=== PATIENT | female | born 1935 | race Caucasian/White ===

== ENCOUNTER 2016-08-01 09:00 | Outpatient (CLI) | payer OTHER ==
--- NOTE | 2016-08-01 11:28 | DIAGNOSTIC IMAGING REPORT ---
PROCEDURE: US VENOUS - BILATERAL EXT INDICATION: CHRONIC LE EDEMA,BILAT TECHNIQUE: Duplex sonography of the deep and superficial venous system in both lower extremities was performed. Compression and augmentation techniques were used. The patient was scanned in the upright position. Surveillance of the venous system during Valsalva maneuver when appropriate was performed. COMPARISON: None. FINDINGS: Each interrogated segment of the deep vein demonstrates normal compressibility, augmentation, and normal color Doppler flow without filling defect. No thrombus in either greater saphenous or short saphenous vein. There is no venous reflux in the right greater or lesser saphenous vein. The vein measures 7 mm in maximal diameter in the proximal segment. There is no venous reflux in the left greater or lesser saphenous vein. The vein measures 5 mm in maximal diameter in the proximal and distal segment. There is venous reflux in the left deep venous system. Reflux is noted in the popliteal vein for a duration of about 2.5 seconds. No reflux in the right deep venous system. No venous varicosities are seen. IMPRESSION: 1. Reflux in the left popliteal vein. 2. No evidence of superficial venous system reflux. 3. No deep venous thrombosis.
--- NOTE | 2016-08-01 12:24 | DIAGNOSTIC IMAGING REPORT ---
PROCEDURE: US ART LOWER EXT WITH DAO-B/L INDICATION: CHRONIC LE EDEMA,BILAT TECHNIQUE: Color Doppler duplex imaging of the lower extremity arterial system was performed bilaterally. Pre exercise ABIs were acquired. The patient was unable to exercise. COMPARISON: None. FINDINGS: RIGHT LOWER EXTREMITY: ABIs: Pre exercise posterior tibial: 0.74. Pre exercise dorsalis pedis: 0.67. VESSELS/ WAVEFORMS: Monophasic arterial inflow and monophasic arterial flow throughout the right lower extremity. Heavy calcification, particularly at the origin of the of the superficial femoral artery where the subjective moderate luminal stenosis is visible. There is also mild luminal stenosis at the origin of the profunda femoral artery. RIGHT LOWER EXTREMITY PEAK SYSTOLIC VELOCITIES: External iliac: 151 cm/second. Common femoral artery: 129 cm/second. Profunda femoral artery: 117 cm/second. Proximal superficial femoral artery: 253 cm/second. Mid superficial femoral artery: 130 cm/second. Distal superficial femoral artery: 120 cm/second. Popliteal artery: 60 cm/second. Proximal posterior tibial artery: 55 cm/second. Proximal anterior tibial artery: 64 cm/second. Peroneal artery: Not seen cm/second. Distal posterior tibial artery: 65 cm/second. Dorsalis pedis artery: 91 cm/second. LEFT LOWER EXTREMITY: ABIs: Pre exercise posterior tibial: 0.96. Pre exercise dorsalis pedis: 0.91. VESSELS/ WAVEFORMS: Monophasic arterial inflow and monophasic arterial flow throughout the lower extremity. Heavily calcified proximal arteries without a focal subjective luminal stenosis, but moderate irregularity in the common and superficial femoral arteries. LEFT LOWER EXTREMITY PEAK SYSTOLIC VELOCITIES: External iliac: 293 cm/second. Common femoral artery: 229 cm/second. Profunda femoral artery: 179 cm/second. Proximal superficial femoral artery: 179 cm/second. Mid superficial femoral artery: 148 cm/second. Distal superficial femoral artery: 157 cm/second. Popliteal artery: 106 cm/second. Proximal posterior tibial artery: 66 cm/second. Proximal anterior tibial artery: 56 cm/second. Peroneal artery: Not seen cm/second. Distal posterior tibial artery: 56 cm/second. Dorsalis pedis artery: 74 cm/second. IMPRESSION: 1. Moderate resting arterial insufficiency in the right lower extremity given ankle-brachial indices. 2. Very mild resting arterial insufficiency in the left lower extremity. 3. 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 4. Moderate calcific stenosis of the proximal right superficial femoral artery origin causing a focal velocity elevation.
== END 2016-08-01 23:00 ==
LOC: US SRH 09:00
DX: I87.2 Venous insufficiency (chronic) (peripheral) (principal); I70.209 Unspecified atherosclerosis of native arteries of extremities, unspecified extremity